=== PATIENT | male | born 1930 | race Caucasian/White ===

== ENCOUNTER 2017-03-22 00:55 | Day surgery (SDC) | payer MEDICARE, OTHER ==
[2017-03-22] VITALS (15 sets, daily range): BP systolic 95–172; BP diastolic 55–76; PULSE 58–79; RESP 10–20; O2SAT 92–97
[~2017-03-22] VITALS: Ht 175.3 cm; Wt 79.8 kg
[~2017-03-22 00:55] MED LIST: AMLO10TA3 PO; ASPI-973 PO; ATOR40TA69 PO; HYDR-3939 PO; HYG25 PO; INSU100I SUBCUTA079; INSU100I13 SUBQ; LISI40TA PO; METF1000 PO; TAMS0.4C98 PO
--- NOTE | 2017-03-22 06:00 | NUR ---
ADMISSION NOTE MALE PT ADMITTED FOR PACEMAKER. DISCUSSED PLAN OF CARE WITH PT AND FAMILY. SEE ADMIT AND FLOW SHEET
[2017-03-22] MEDS ORDERED: 0.9% Sodium Chloride 1,000 ML IV SCH (06:15)
[2017-03-22] MEDS ORDERED: CeFAZolin Inj 2 GM in IV Premix 1 EACH IV ONE (06:15)
[2017-03-22 06:58] LABS: BASOPHILS % (AUTO) 0.5 % (0-3); EOSINOPHILS % (AUTO) 5.5 % (0-5); INR 1.02 ratio; MONOCYTES % (AUTO) 8.8 % (4-12); Mean Corpuscular Hemoglobin 30.3 pg (27.0-35.0); Mean Corpuscular Volume 90.2 fL (81-100); NEUTROPHILS % (AUTO) 60.3 % (40-74); Platelet Count 168 bil/L (150-400)
[2017-03-22] MEDS ORDERED: 0.9% Sodium Chloride 250 ML ONE (08:01)
[2017-03-22] MEDS ORDERED: Bupivacaine-MPF 0.5% 30 mL Inj ONE (08:01)
[2017-03-22] MEDS ORDERED: Heparin 10,000 Unit/1,000 mL NS Premix IV ONE (08:01)
[2017-03-22] MEDS ORDERED: fentaNYL-PF 50 mCg/mL 2 mL Inj ONE ×2 (08:24→09:05)
[2017-03-22] MEDS ORDERED: Ondansetron 2 mg/mL 2 mL Inj IVPUSH PRN (10:15)
[2017-03-22] MEDS ORDERED: HYDROcodone-APAP 5-325 mg Tablet PO PRN (10:15)
--- NOTE | 2017-03-22 10:41 | NUR ---
Post pacemaker implant: Patient returns from Customer Experience Consultant, alert and denies pain. Site is dry and ice pack applied. Monitor displays atrially paced activity. Taking po liquids.
--- NOTE | 2017-03-22 11:35 | OP ---
[address] [address] OPERATIVE REPORT PATIENT: LAURENCE DEL TORO : 1930 MR#: [id number] ADMIT: 03/22/2017 JOB ID: [id number] DATE OF SURGERY: 03/22/2017 PREOPERATIVE DIAGNOSIS(ES): 1. Sick sinus syndrome. 2. Intermittent complete heart block. POSTOPERATIVE DIAGNOSIS(ES): 1. Sick sinus syndrome. 2. Intermittent complete heart block. PROCEDURES PERFORMED: 1. Dual-chamber pacemaker implantation. 2. Left upper extremity venogram. 3. Fluoroscopy. SURGEON: Deven Kaplan MD VENUE ATTENDANT: 1. Meme Caruso MD, Intervention Cardiology attending. 2. Don Apple. IMPLANTED DEVICES: 1. [employer] pulse generator, model SS2495, serial #[id number]. 2. RA lead, [employer] 1200, 52 cm, serial #[id number]. 3. RV lead, [employer] 1200, 58 cm, serial #[id number]. ANESTHESIA: Bolus dosing of Versed and fentanyl were used to achieve an appropriate level of sedation. INDICATION: The patient is a pleasant, 86-year-old man, with known coronary artery disease, bypass grafting, and intermittent complete heart block. After discussion of risks and benefits of dual-chamber pacemaker implantation, he opted to proceed. PROCEDURAL DESCRIPTION: After informed was obtained, the patient was taken to the EP laboratory in a fasting state. He was prepped and draped in the usual sterile fashion. The left infraclavicular region was infiltrated with 40 cc of a 50/50 mixture of bupivacaine and lidocaine. Once adequate anesthesia had been achieved, a 3 cm incision was performed 2 cm below the left clavicle prepped. Dissection was carried down to the pectoralis fascia. The pocket was then fashioned using a combination of electrocautery and blunt dissection. Once adequate hemostasis had been achieved, attempts to access the left axillary vein was unsuccessful. A left upper extremity venogram was performed. Under venogram guidance, the vessel was cannulated twice with a micropuncture needle to deploy two 0.035, 3 mm J guidewires. Over the first of these, an 8-Kazakh tear-away sheath was advanced. Once the guidewire was removed, an active fixation lead was advanced to the RV outflow tract, ultimately the RV apex. The lead was affixed in position using associated active fixation screw and was connected to the external analyzer, and demonstrated appropriately sensed R waves, impedance, and capture threshold was checked to 10 V and there was no evidence of diaphragmatic stimulation. Attention was now paid to the right atrial lead. Over the previously deployed J guidewire, another 8-Kazakh tear-away sheath was advanced. Once the guidewire was removed, an active fixation lead was advanced to the right atrial appendage. It was affixed in position using associated active fixation screw, connected to the external analyzer and demonstrated appropriately sensed P waves, impedance. Capture threshold was checked to 10 V and there was no evidence of diaphragmatic stimulation. Once the position and redundancy of both leads had been confirmed in multiple fluoroscopic views, the leads were anchored to the prepectoralis fascia using the associated anchoring sleeves and two Ethibond sutures. The pocket was then copiously irrigated with antibiotic solution. The leads were connected to a generator and the generator was placed in the pocket. It was affixed to the floor of the pocket using 1-0 Ti-Cron suture. The incision was then closed with running layers of absorbable suture. The wound was dressed with skin adhesive at the end of the procedure. The needle, sponge, and instrument counts were correct. COMPLICATIONS: None. BLOOD LOSS: Negligible. DEVICE MEASURED DATA: 1. Right atrial lead 2.3 mV, 560 ohms, 0.5 V at 0.4 msec. 2. RV lead 10 mV, 610 ohms, 0.5 V at 0.4 msec. FINAL PROGRAM PARAMETERS: DDD 60-130 beats per minute. IMPRESSION: Successful dual-chamber pacemaker implantation. PLAN: 1. Stat portable chest x-ray. 2. PA and lateral chest x-ray in the morning. 3. Device interrogation. 4. IV Ancef through tomorrow. 5. Keflex x7 days. 6. Wound check in one week. ATTENDING STATEMENT: Deven Beck MD, electrophysiology attending, was present for and supervised/performed all aspects of this procedure.
--- NOTE | 2017-03-22 13:12 | DRSVH ---
PROCEDURE: X-RAY CHEST ONE VIEW, PORTABLE ([id number]) INDICATIONS: For new leads placed TECHNIQUE: One view of the chest was acquired. COMPARISON: [facility], , CHEST 2VW, 08/02/2007, 11:47. FINDINGS: Surgical changes and devices: Left cardiac pacer present in expected position. Median sternotomy wir es present. Lungs and pleura: No pleural effusions or pneumothorax. Lungs are clear. Mediastinum: Mediastinal contours appear normal. Heart size is normal. Bones and chest wall: No suspicious bony lesions. Overlying soft tissues appear unremarkable. IMPRESSION: No immediate complications status post cardiac pacemaker placement. Dictated by: Christ LIVINGSTON Interpreted: Shelli Bhatti MD on 03/22/2017 at 13:11 Transcribed by: EFRAIN on 03/22/2017 at 13:12 Approved by: Shelli Bhatti MD, PhD on 03/22/2017 at 15:10
--- NOTE | 2017-03-22 13:15 | NUR ---
TRANSFERED TO [facility]. REPORT GIVEN
--- NOTE | 2017-03-22 14:40 | NUR ---
MPC Patient arrived on unit via wheelchair. Patient alert and oriented on arrival. Patient denied pain. Displayed steady gait to bathroom, moving independent in bed, urinating without difficulty. Patient denies pain/discomfort. Good appetite eating 100% of meal. Reports "I am feeling pretty good".
--- NOTE | 2017-03-22 15:45 | NUR ---
DISCHARGE NOTE SITE STABLE, NO FURTHER DRAINAGE OR HEMATOMA. INSTRUCTIONS GIVEN. HOME WITH DAUGHTER Addendum: 03/22/17 at 1559 by ANGEL BOLANOS RN DISREGUARD NOTE. INCORRECT PATIENT
[2017-03-22] MEDS: 0.9% Sodium Chloride 1,000 ML IV SCH ×2 (18:01→20:11)
[2017-03-22] MEDS: CeFAZolin Inj 1 GM in IV Premix 1 EACH IV SCH (18:01)
[2017-03-22] MEDS ORDERED: Insulin GLARgine 100 Unit/mL Syringe SUBQ SCH (21:00)
[2017-03-23] MEDS: CeFAZolin Inj 1 GM in IV Premix 1 EACH IV SCH (01:10)
[2017-03-23 02:03] VITALS: BP 144/66; PULSE 65; RESP 18; O2SAT 94
--- NOTE | 2017-03-23 03:05 | NUR ---
Blood Sugar Pt blood sugar taken at approximately 2200. Blood sugar level at 285. Pt given Lantus dose 15 units. Discussed with pt if he wanted a correctional dose and pt refused.
[2017-03-23 06:10] VITALS: BP 172/68; PULSE 64; RESP 18; O2SAT 94
[2017-03-23] MEDS: 0.9% Sodium Chloride 1,000 ML IV SCH (06:11)
[2017-03-23] MEDS ORDERED: Lisinopril 40 Tablet PO SCH (08:30)
--- NOTE | 2017-03-23 08:43 | PCM.DIMED ---
Discharge Instructions Date of Service March 23, 2017 Dates of Hospitalization Discharge Diagnosis Discharge Diagnosis Intermittent Complete Heart Block Symptomatic Bradycardia CAD Diabetes PVD Hypertension Diet Heart Healthy, Diabetic Activity Other (Do not extend left elbow high above shoulder for one month. Do not lift , push or pull more than 10 lbs with the left arm for one month.) Call your provider Fever or Chills, Bleeding, Excessive diarrhea Patient Instructions Follow-up in: 1 week Mid-level Provider (F9): José Hannon PA-C Follow-up with Mid-level in: 6 weeks José Hannon PA-C March 23, 2017 08:43
[2017-03-23] MEDS ORDERED: CEPH500C PO (08:55)
[2017-03-23] MEDS ORDERED: HYDR-4003 PO (08:56)
[2017-03-23 09:19] VITALS: BP 114/54; PULSE 63; RESP 18; O2SAT 92
[2017-03-23 09:27] VITALS: BP 124/62
--- NOTE | 2017-03-23 09:33 | DRSVH ---
PROCEDURE: X-RAY CHEST, TWO VIEWS ([id number]) INDICATIONS: For new lead placement TECHNIQUE: 2 views of the chest were acquired. COMPARISON: [facility], CR, XR CHEST 1VW (PORTABLE), 03/22/2017, 10:14. FINDINGS: Surgical changes and devices: Stable position left cardiac pacemaker. Median sternotomy wires presen t. Lungs and pleura: No pleural effusions or pneumothorax. Lungs are clear. Mediastinum: Mediastinal contours are normal. Heart size is normal. Bones and chest wall: No suspicious bony abnormalities. Soft tissues appear unremarkable. IMPRESSION: Stable chest post pacer placement. Dictated by: Christ LIVINGSTON Interpreted: Tiarra Shrestha MD on 03/23/2017 at 9:32 Transcribed by: OMAR on 03/23/2017 at 9:33 Approved by: Tiarra Shrestha M.D. on 03/25/2017 at 9:05
--- NOTE | 2017-03-23 09:37 | DIS ---
[address] [address] DISCHARGE SUMMARY PATIENT: LAURENCE DEL TORO : 1930 MR#: [id number] ADMIT: 03/22/2017 JOB ID: [id number] DIS: 03/23/2017 REASON FOR ADMISSION: Pacemaker implant. CHIEF COMPLAINT: Lightheadedness. BRIEF HISTORY: The patient is a very pleasant, 86-year-old man, with a history of CAD and prior bypass surgery, who also has peripheral vascular disease, diabetes mellitus, and hypertension. He has been documented to have bradycardia down to 27 BPM, with also recording of 29 pauses up to 3.8 seconds, showing intermittent complete heart block. He was advised of the utility of a pacemaker in preventing symptomatic bradycardia and falls, and wished to proceed with the pacemaker. COURSE IN HOSPITAL: The patient was admitted to the [facility] and taken to the director geophysical laboratory, where he received the dual-chamber cardiac pacemaker without incident. He was transferred back to the [facility] for recovery from sedation and then transferred up to the [facility] for overnight telemetry monitoring. He did well overnight and had no complications. In the morning, he was ambulatory without difficulty and not symptomatic. The incision site is closed and dry, and not too tender. The site has no hematoma. Device evaluation shows excellent capture and sensing thresholds for both chambers. Chest x-ray shows good lead positions with no pneumothorax. He felt well for discharge home and had no complaints of lightheadedness, or chest pain or dyspnea. DISPOSITION: The patient was discharged home in good condition, with a follow up appointment at the [facility] Cardiology office in one week. He is asked not to extend his left elbow above his shoulder for one month and not to lift, push or pull more than 10 pounds with the left arm for one month. He will follow his heart healthy and diabetic diets. Take medications as prescribed. DISCHARGE MEDICATIONS: 1. Cephalexin 500 mg b.i.d. 2. Hydrocodone/acetaminophen 5/325 mg tablets, take 1 tablet q.4 h. p.r.n. pain, quantity of 10, with no refills. 3. Amlodipine 10 mg daily. 4. Aspirin 81 mg daily. 5. Atorvastatin 40 mg daily. 6. Chlorthalidone 25 mg daily. 7. Hydralazine 25 mg b.i.d. 8. Insulin Aspart 100 units/mL, units subcutaneous three times a day with meals. 9. Lantus insulin 30 units subcu daily. 10. Lisinopril 40 mg daily. 11. Metformin 1 g b.i.d. 12. Tamsulosin 0.4 mg daily. FINAL DIAGNOSES: CAD, diabetes mellitus, intermittent complete heart block. Symptomatic bradycardia. Hypertension thank you very much. Please for recovery to his primary doctor, who was in the ball of Dyslipidemia.
--- NOTE | 2017-03-23 11:10 | NUR ---
Discharge Pt discharged to home at approx 1105. Taken off unit in wheelchair, accompanied by friend and MODERN LANGUAGES PROFESSOR. All pt belongings sent with pt. Discharge instructions given and explained. Care notes provided, One Rx sent electronically to pharmacy, and hard copy of pain pill rx sent with pt. Instructed by PA on care for incision and activity and weight restrictions. Instructed to follow up with cardiology in 1 week. Pt verbalizes understanding.
== END 2017-03-23 11:10 | disposition home or self-care (01) ==
LOC: SOUO 00:55 → MPC 14:35 → SOUO 03-23 11:10
PROVIDERS: ATTEND Internal Medicine Interventional Cardiology
DX: I44.2 Atrioventricular block, complete (principal); I49.5 Sick sinus syndrome; I25.10 Atherosclerotic heart disease of native coronary artery without angina pectoris; E11.9 Type 2 diabetes mellitus without complications; I10 Essential (primary) hypertension; E78.5 Hyperlipidemia, unspecified; I73.9 Peripheral vascular disease, unspecified; I65.23 Occlusion and stenosis of bilateral carotid arteries; Z95.2 Presence of prosthetic heart valve; Z95.1 Presence of aortocoronary bypass graft; Z87.891 Personal history of nicotine dependence; Z79.82 Long term (current) use of aspirin; Z79.4 Long term (current) use of insulin; Z79.84 Long term (current) use of oral hypoglycemic drugs; Z98.62 Peripheral vascular angioplasty status
CPT/HCPCS: 33208; 36415; 71010; 71020; 80048; 85025; 85610; 93005; 99152; 99153; C1769; C1785; C1892; C1898; J0131; J0690; J1644; J1815; J2250; J3010; J7030; J7050